=== PATIENT | male | born 1955 | race Caucasian/White ===

== ENCOUNTER → 2016-12-02 | Outpatient (CLI) | payer BC | LOC: CIMAGING 11:49 | PROVIDERS: ATTEND Physician Assistant | DX: R93.5 Abnormal findings on diagnostic imaging of other abdominal regions, including retroperitoneum (principal) | CPT/HCPCS: 74020-PO ==

== ENCOUNTER → 2016-12-07 | Outpatient (CLI) | payer BC | LOC: CIMAGING 07:55 | PROVIDERS: ATTEND Physician Assistant | DX: K76.0 Fatty (change of) liver, not elsewhere classified (principal) | CPT/HCPCS: 76705-PO ==